=== PATIENT | female | born 1945 | race Caucasian/White ===

== ENCOUNTER 2020-05-14 20:18 | Emergency (ER) | payer MEDICARE, MEDICAID ==
[2020-05-14] MEDS ORDERED: Sodium Chloride 0.9% 10 ML Syringe FLUSH PRN (20:38)
--- NOTE | 2020-05-14 21:07 | EDM.PDOC ---
ED HPI GENERAL MEDICAL PROBLEM - General Chief Complaint: General Stated Complaint: FALL Time Seen by Provider: 05/14/20 20:18 Source of Information: Reports: Patient History Limitations: Reports: No Limitations - History of Present Illness INITIAL COMMENTS - FREE TEXT/NARRATIVE: Patient comes into the emergency department with complaints of increased confusion and weakness. Daughter is with the patient states that they noticed this morning approximately 8:00 AM that the patient was more tired and fatigued and slowly throughout the day she is progressively gotten worse. She even needed to take a nap after they went shopping this afternoon which is not a normal finding. She did take her blood sugar at home for she is a diabetic but the reading 1 hour ago was 170s. States that her father has noticed that her mother has become more intermittently confused over the course the last month. But noticed increased confusion since this am. She denies any behavioral change s but states that her father has noticed confusion. They have not worked this up with primary care yet but do expect follow-up soon. Patient's daughter states that she had difficulty getting out of the car to the weakness today and needed a wheelchair to get into the ER. She does not normally utilize any assistive devices on a regular basis. She does not recall noticing any asymmetry with regards to strength,weakness, or mobility. Not noticed any nausea or vomiting. Patient declines any chest pain, shortness of breath, nausea, dizziness, GI upset, urinary concerns or abnormalities, or peripheral edema. Patient and family both state they have not had any other illnesses or concerns or COVID 19 symptoms. Last known well 0800 05/14/2020: 12+ hours No surgeries, hospitalizations within 30 days, no major bleeding within 3 months, no anticoagulants Onset: Today Location: Reports: Head Improves with: Reports: None Worsens with: Reports: None Associated Symptoms: Reports: No Other Symptoms - Related Data Allergies Allergy/AdvReac Type Severity Reaction Status Date / Time sulfasalazine Allergy Itching Verified 03/02/16 08:43 Home Meds: Home Meds Acetaminophen [Tylenol] 325 mg PO ASDIRECTED PRN 02/02/16 [History] Aspirin 162.5 mg PO DAILY 02/02/16 [History] Calcium Carbonate [Calcium] 600 mg PO DAILY 02/02/16 [History] Folic Acid 1 mg PO DAILY 02/02/16 [History] Leflunomide 10 mg PO DAILY 02/02/16 [History] Lisinopril 5 mg PO DAILY 02/02/16 [History] Methotrexate Sodium/PF [Methotrexate 25 mg/ml Vial] 25 mg SQ WEEKLY 02/02/16 [History] Naproxen Sodium 220 mg PO ASDIRECTED PRN 02/02/16 [History] Ofloxacin [Ocuflox 0.3% Ophth Soln] 1 drop .ROUTE ASDIRECTED 02/02/16 [History] Simvastatin [Zocor] 5 mg PO DAILY 02/02/16 [History] Simvastatin [Zocor] 10 mg PO DAILY 02/02/16 [History] glipiZIDE [Glipizide Xl] 5 mg PO DAILY 02/02/16 [History] predniSONE [Prednisone] 2 mg PO DAILY 02/02/16 [History] Non-Formulary Medication [NF Drug] 0 each .XX .XX 02/03/16 [History] Sulfamethoxazole/Trimethoprim [Bactrim Ds Tablet] 1 each PO BID #14 tablet 05/14/20 [Rx] Past Medical History Cardiovascular History: Reports: High Cholesterol, Hypertension Musculoskeletal History: Reports: RA Endocrine/Metabolic History: Reports: Diabetes, Type II ED ROS GENERAL - Review of Systems Review Of Systems: Comprehensive ROS is negative, except as noted in HPI. Constitutional: Reports: No Symptoms HEENT: Reports: No Symptoms Respiratory: Reports: No Symptoms Cardiovascular: Reports: No Symptoms Endocrine: Reports: No Symptoms GI/Abdominal: Reports: No Symptoms : Reports: No Symptoms Musculoskeletal: Reports: No Symptoms Skin: Reports: No Symptoms Neurological: Reports: Confusion, Trouble Speaking, Difficulty Walking, Weakness Psychiatric: Reports: No Symptoms Hematologic/Lymphatic: Reports: No Symptoms Immunologic: Reports: No Symptoms ED EXAM, GENERAL - Physical Exam Exam: See Below Exam Limited By: No Limitations General Appearance: Alert, WD/WN, No Apparent Distress Head: Atraumatic, Normocephalic Neck: Normal Inspection, Supple, Non-Tender, Full Range of Motion Respiratory/Chest: No Respiratory Distress, Lungs Clear, Normal Breath Sounds, No Accessory Muscle Use, Chest Non-Tender Cardiovascular: Normal Peripheral Pulses, Regular Rate, Rhythm, No Edema, No JVD GI/Abdominal: Normal Bowel Sounds, Soft, Non-Tender, No Distention Back Exam: Normal Inspection, Full Range of Motion Extremities: Normal Inspection, Normal Range of Motion, Non-Tender, No Pedal Edema, Normal Capillary Refill Neurological: Confused, Disoriented, Slow to Respond Psychiatric: Normal Affect, Flat Affect Skin Exam: Warm, Dry, Intact, Normal Color Course - Orders/Labs/Meds Orders: Active Orders 24 hr Category Date Time Status Chest 1V Frontal [CR] Stat Exams 05/14/20 21:23 Taken Head wo Cont [CT] Stat Exams 05/14/20 20:38 Taken CULTURE URINE [RM] Stat Lab 05/14/20 22:05 Received Sodium Chloride 0.9% [Normal Saline] 1,000 ml Med 05/14/20 21:13 Active IV ONETIME Sodium Chloride 0.9% [Saline Flush] Med 05/14/20 20:38 Active 10 ml FLUSH ASDIRECTED PRN Peripheral IV Insertion Adult [OM.PC] Stat Oth 05/14/20 20:37 Ordered Medication Orders Sodium Chloride (Normal Saline) 1,000 mls @ 300 mls/hr IV ONETIME ONE Stop: 05/15/20 00:32 Sodium Chloride (Saline Flush) 10 ml FLUSH ASDIRECTED PRN PRN Reason: Keep Vein Open Labs: Laboratory Tests 05/14/20 05/14/20 05/14/20 Range/Units 20:29 20:35 20:35 WBC 10.6 H (4.0-10.0) x10^3/uL RBC 4.37 (4.00-5.50) x10^6/uL Hgb 12.6 (12.0-16.0) g/dL Hct 37.9 (33.0-47.0) % MCV 86.7 (78.0-93.0) fL MCH 28.8 (26.0-32.0) pg MCHC 33.2 (32.0-36.0) g/dL RDW Coeff of Diana 15.8 H (10.0-15.0) % Plt Count 174 (130-400) x10^3/uL Neut % (Auto) 89.5 H (50.0-80.0) % Lymph % (Auto) 6.1 L (25.0-50.0) % [place] % (Auto) 2.5 (2.0-11.0) % Eos % (Auto) 1.4 (0.0-4.0) % Baso % (Auto) 0.5 (0.2-1.2) % PT (9.5-12.3) SEC INR (2.0-3.5) Sodium 133 L (136-145) mmol/L Potassium 3.6 (3.5-5.1) mmol/L Chloride 99 (98-107) mmol/L Carbon Dioxide 26 (21-32) mmol/L Anion Gap 11.6 (10-20) mmol/L BUN 17 (7-18) mg/dL Creatinine 0.5 L (0.55-1.02) mg/dL Est Cr Clr Drug Dosing TNP Estimated GFR (MDRD) > 60 Glucose 160 H (74-106) mg/dL POC Glucose 151 H (74-106) mg/dL Calcium 8.8 (8.5-10.1) mg/dL Corrected Calcium 9.60 (8.5-10.1) mg/dL Total Bilirubin 1.2 H (0.2-1.0) mg/dL AST 18 (15-37) U/L ALT 26 (14-59) U/L Alkaline Phosphatase 133 H (46-116) U/L Creatine Kinase 34 (26-192) U/L Troponin I < 0.017 (<=0.056) ng/mL NT-Pro-B Natriuret Pep 23 (<=450) pg/mL Total Protein 6.2 L (6.4-8.2) g/dL Albumin 3.0 L (3.4-5.0) g/dL Globulin 3.2 Albumin/Globulin Ratio 0.94 Urine Color (YELLOW) Urine Appearance (CLEAR) Urine pH (5.0-8.0) Ur Specific [place] Urine Protein (NEGATIVE) mg/dL Urine Glucose (UA) (NEGATIVE) mg/dL Urine Ketones (NEGATIVE) mg/dL Urine Occult Blood (NEGATIVE) Urine Nitrite (NEGATIVE) Urine Bilirubin (NEGATIVE) Urine Urobilinogen (0.2) EU/dL Ur Leukocyte Esterase (NEGATIVE) Urine RBC (NOT SEEN) /HPF Urine WBC (NOT SEEN) /HPF Ur Squamous Epith Cells (NEGATIVE) /HPF Urine Bacteria (NEGATIVE) /HPF Urine Mucus (NEGATIVE) /LPF 05/14/20 05/14/20 Range/Units 21:02 22:05 WBC (4.0-10.0) x10^3/uL RBC (4.00-5.50) x10^6/uL Hgb (12.0-16.0) g/dL Hct (33.0-47.0) % MCV (78.0-93.0) fL MCH (26.0-32.0) pg MCHC (32.0-36.0) g/dL RDW Coeff of Diana (10.0-15.0) % Plt Count (130-400) x10^3/uL Neut % (Auto) (50.0-80.0) % Lymph % (Auto) (25.0-50.0) % [place] % (Auto) (2.0-11.0) % Eos % (Auto) (0.0-4.0) % Baso % (Auto) (0.2-1.2) % PT 10.4 (9.5-12.3) SEC INR 1.0 L (2.0-3.5) Sodium (136-145) mmol/L Potassium (3.5-5.1) mmol/L Chloride (98-107) mmol/L Carbon Dioxide (21-32) mmol/L Anion Gap (10-20) mmol/L BUN (7-18) mg/dL Creatinine (0.55-1.02) mg/dL Est Cr Clr Drug Dosing Estimated GFR (MDRD) Glucose (74-106) mg/dL POC Glucose (74-106) mg/dL Calcium (8.5-10.1) mg/dL Corrected Calcium (8.5-10.1) mg/dL Total Bilirubin (0.2-1.0) mg/dL AST (15-37) U/L ALT (14-59) U/L Alkaline Phosphatase (46-116) U/L Creatine Kinase (26-192) U/L Troponin I (<=0.056) ng/mL NT-Pro-B Natriuret Pep (<=450) pg/mL Total Protein (6.4-8.2) g/dL Albumin (3.4-5.0) g/dL Globulin Albumin/Globulin Ratio Urine Color Yellow (YELLOW) Urine Appearance Cloudy H (CLEAR) Urine pH 7.0 (5.0-8.0) Ur Specific [place] 1.015 Urine Protein Negative (NEGATIVE) mg/dL Urine Glucose (UA) 500 H (NEGATIVE) mg/dL Urine Ketones 40 H (NEGATIVE) mg/dL Urine Occult Blood Trace-intact H (NEGATIVE) Urine Nitrite Positive H (NEGATIVE) Urine Bilirubin Negative (NEGATIVE) Urine Urobilinogen 1.0 (0.2) EU/dL Ur Leukocyte Esterase Trace H (NEGATIVE) Urine RBC 0-5 (NOT SEEN) /HPF Urine WBC 10-20 H (NOT SEEN) /HPF Ur Squamous Epith Cells Moderate H (NEGATIVE) /HPF Urine Bacteria Many H (NEGATIVE) /HPF Urine Mucus Rare H (NEGATIVE) /LPF Meds: Medications Generic Name Dose Route Start Last Admin Trade Name Freq PRN Reason Stop Dose Admin Sodium Chloride 1,000 mls @ 300 mls/hr 05/14/20 21:13 Normal Saline IV 05/15/20 00:32 ONETIME ONE Sodium Chloride 10 ml 05/14/20 20:38 Saline Flush FLUSH ASDIRECTED PRN Keep Vein Open Discontinued Medications Generic Name Dose Route Start Last Admin Trade Name Freq PRN Reason Stop Dose Admin Ceftriaxone Sodium 1 gm 05/14/20 22:26 Rocephin IVPUSH 05/14/20 22:27 ONETIME ONE Departure - Departure Time of Disposition: 22:50 Disposition: Home, Self-Care 01 Condition: Good Clinical Impression: UTI, Urinary tract infectious disease - Discharge Information *PRESCRIPTION DRUG MONITORING PROGRAM REVIEWED*: Not Applicable *COPY OF PRESCRIPTION DRUG MONITORING REPORT IN PATIENT ATTILA: Not Applicable Prescriptions: Sulfamethoxazole/Trimethoprim [Bactrim Ds Tablet] 1 each PO BID #14 tablet Instructions: Urinary Tract Infection, Adult, Ceftriaxone injection, Probiotics, Sulfamethoxazole; Trimethoprim, SMX-[id number] tablets Referrals: Dianelys Waller PA-C [Primary Care Provider] - Forms: ED Department Discharge Additional Instructions: 1. rest 2. increase your water intake 3. Take all antibiotics as prescribed even if feeling better 4. Take a probiotic while on antibiotics to help promote healthy GI motility 5. Activity and diet as tolerated 6. Can use Ibuprofen and tylenol for any fever or discomfort 7. Follow up with your PCP or return if symptoms progress or worsen 8. Education provided to you regarding your illness, probiotics, antibiotic prescribed 9. Call with any questions or concerns - My Orders Last 24 Hours: My Active Orders 05/14/20 20:37 Peripheral IV Insertion Adult [OM.PC] Stat 05/14/20 20:38 Head wo Cont [CT] Stat Sodium Chloride 0.9% [Saline Flush] 10 ml FLUSH ASDIRECTED PRN 05/14/20 21:13 Sodium Chloride 0.9% [Normal Saline] 1,000 ml IV ONETIME 05/14/20 21:23 Chest 1V Frontal [CR] Stat 05/14/20 22:05 CULTURE URINE [RM] Stat - Assessment/Plan Last 24 Hours: My Active Orders 05/14/20 20:37 Peripheral IV Insertion Adult [OM.PC] Stat 05/14/20 20:38 Head wo Cont [CT] Stat Sodium Chloride 0.9% [Saline Flush] 10 ml FLUSH ASDIRECTED PRN 05/14/20 21:13 Sodium Chloride 0.9% [Normal Saline] 1,000 ml IV ONETIME 05/14/20 21:23 Chest 1V Frontal [CR] Stat 05/14/20 22:05 CULTURE URINE [RM] Stat Assessment:: 1. mental state changes 2. UTI Plan: 1. Labs completed in the ER. Results reviewed with the patient 2. CT scan completed in the ER. Results reviewed with the patient 3. IV initiated in the emergency department 4. IV fluids provided 5. UA/UC ordered and obtained 6. 1 gm Rocephin IV given 7. Chest xray completed in ER- results reviewed with the patient and family 8. Patient will be transferred to a higher level of care needing further medical and/or surgical interventions 9. Patient and nursing staff was updated regarding the plan of care 10. Patient and family are agreeable to the above plan of care 11. All questions and concerns were addressed with the patient and family prior to discharge
[2020-05-14 21:13] LABS: CHLORIDE,CL 99 mmol/L (98-107); SODIUM,NA 133 mmol/L (136-145)
[2020-05-14] MEDS ORDERED: Sodium Chloride 0.9% 1,000 ML IV ONE (21:13)
[2020-05-14 21:15] LABS: ANION GAP 11.6 mmol/L (10-20)
[2020-05-14] MEDS ORDERED: cefTRIAXone 1 GM Vial IVPUSH ONE (22:26)
--- NOTE | 2020-05-15 08:08 | CR ---
[id number] RAD/RAD Chest Portable EXAM: PORTABLE CHEST RADIOGRAPH. INDICATION: DECREASED BREATH SOUNDS COMPARISON: No previous similar exam is available for comparison. FINDINGS: The lungs are clear. The cardiomediastinal contour is mildly prominent. The regional bones and soft tissues are unremarkable. There is no pneumothorax. IMPRESSION: NO ACUTE PROCESS. Sky Suarez MD 05/15/20 0807 Thank you for allowing us to participate in the care of your patient.
--- NOTE | 2020-05-15 08:09 | CT ---
[id number] CT/CT Head WO IV EXAM: CT Head WO IV CLINICAL DATA: NEUROLOGIC DEFICIT COMPARISON: CORRELATION IS MADE WITH JANUARY 02, 2020 FINDINGS: There is no mass or mass effect. There is no hemorrhage or hydrocephalus. There are no extra-axial fluid collections. There are no sites of abnormal attenuation. IMPRESSION: NO PLAIN CT EVIDENCE OF ACUTE INTRACRANIAL PROCESS. Sky Suarez MD 05/15/20 0808 Thank you for allowing us to participate in the care of your patient.
== END 2020-05-14 22:53 | disposition home or self-care (01) ==
LOC: VM.ED 20:18
DX: N39.0 Urinary tract infection, site not specified (principal); I10 Essential (primary) hypertension; E11.9 Type 2 diabetes mellitus without complications; E78.00 Pure hypercholesterolemia, unspecified; Z88.2 Allergy status to sulfonamides; Z79.82 Long term (current) use of aspirin; Z79.899 Other long term (current) drug therapy
CPT/HCPCS: 36415; 70450; 71045; 80053; 81001; 82550; 82962; 83880; 84484; 85025; 85610; 87086; 87088; 87186; 93005; 96361; 96374; 99285; J0696; 99284-GF

== ENCOUNTER 2022-03-13 10:30 | Emergency (ER) | payer MEDICARE, MEDICAID ==
[2022-03-13 11:33] VITALS: BP 115/52; PULSE 89
== END 2022-03-13 11:05 | disposition home or self-care (01) ==
LOC: VM.ED 10:30
DX: M25.511 Pain in right shoulder (principal); M25.512 Pain in left shoulder; M54.2 Cervicalgia; E78.00 Pure hypercholesterolemia, unspecified; I10 Essential (primary) hypertension; E11.9 Type 2 diabetes mellitus without complications; Z88.8 Allergy status to other drugs, medicaments and biological substances; Z79.82 Long term (current) use of aspirin; Z79.899 Other long term (current) drug therapy
CPT/HCPCS: 99283; 99284

== ENCOUNTER 2023-11-27 21:41 | Emergency (ER) | payer MEDICARE, MEDICAID ==
[2023-11-27 22:11] VITALS: PULSE 108
[2023-11-27 22:41] VITALS: BP 130/28
== END 2023-11-27 22:27 | disposition home or self-care (01) ==
LOC: VM.ED 21:41
DX: M06.9 Rheumatoid arthritis, unspecified (principal); I10 Essential (primary) hypertension; E11.9 Type 2 diabetes mellitus without complications; E78.00 Pure hypercholesterolemia, unspecified; Z79.82 Long term (current) use of aspirin; Z79.899 Other long term (current) drug therapy; Z79.84 Long term (current) use of oral hypoglycemic drugs; Z88.2 Allergy status to sulfonamides
CPT/HCPCS: 93005; 93010; 99283; 99284

== ENCOUNTER 2025-05-21 09:46 | Emergency (ER) | payer MEDICAID, MEDICARE ==
[2025-05-21 10:06] VITALS: BP 132/60; PULSE 84
[2025-05-21] MEDS: Ketorolac 30 MG/ML SDV IM ONE (10:21)
== END 2025-05-21 10:35 ==
LOC: VM.ED 09:46
DX: M54.9 Dorsalgia, unspecified (principal); I10 Essential (primary) hypertension; E11.9 Type 2 diabetes mellitus without complications; E78.00 Pure hypercholesterolemia, unspecified; Z88.0 Allergy status to penicillin; Z79.899 Other long term (current) drug therapy; Z79.82 Long term (current) use of aspirin
CPT/HCPCS: 96372; 99282; 99283; J1885

== ENCOUNTER 2025-07-17 17:23 | Emergency (ER) | payer MEDICARE ==
[2025-07-17 17:41] LABS: BASOPHILS ABSOLUTE AUTO 0.0 x10^3/uL (0.0-0.2); BASOPHILS PERCENT AUTO 0.1 % (0.2-1.2); EOSINOPHILS ABSOLUTE AUTO 0.1 x10^3/uL (0.0-0.5); EOSINOPHILS PERCENT AUTO 1.0 % (0.0-4.0); IMMATURE GRAN ABSOLUTE AUTO 0.01 x10^3/uL (0.00-0.07); IMMATURE GRAN PERCENT AUTO 0.10 % (0.00-0.43); LYMPHOCYTES ABSOLUTE AUTO 1.8 x10^3/uL (1.0-4.8); LYMPHOCYTES PERCENT AUTO 18.0 % (25.0-50.0); MONOCYTES ABSOLUTE AUTO 0.5 x10^3/uL (0.0-0.8); MONOCYTES PERCENT AUTO 5.3 % (2.0-11.0); NEUTROPHILS ABSOLUTE AUTO 7.4 x10^3/uL (1.8-7.7); NEUTROPHILS PERCENT AUTO 75.5 % (50.0-80.0); PLATELET COUNT,PLT 291 x10^3/uL (130-400); RED BLOOD CELL COUNT 4.32 x10^6/uL (4.00-5.50); WHITE BLOOD CELL COUNT,WBC 9.9 x10^3/uL (4.0-10.0)
[2025-07-17 18:01] LABS: A/G RATIO 0.89; ALANINE AMINOTRANSFERASE,ALT 19 U/L (14-59); ASPARTATE AMNIOTRANSFERASE,AST 11 U/L (15-37); BILIRUBIN TOTAL 0.6 mg/dL (0.2-1.0); BLOOD UREA NITROGEN,BUN 16 mg/dL (7-18); CARBON DIOXIDE,CO2 27 mmol/L (21-32); CHLORIDE,CL 99 mmol/L (98-107); CREATININE 0.8 mg/dL (0.55-1.02); GLUCOSE RANDOM 385 mg/dL (70-99); POTASSIUM,K 4.0 mmol/L (3.5-5.1); PROTEIN TOTAL,TP 7.0 g/dL (6.4-8.2); SODIUM,NA 134 mmol/L (136-145)
[2025-07-17 18:08] LABS: ESTIMATED GFR 74 mL/min (>=60)
[2025-07-17 19:19] VITALS: BP 131/59; PULSE 77
== END 2025-07-17 18:33 | disposition home or self-care (01) ==
LOC: VM.ED 17:23
DX: E11.65 Type 2 diabetes mellitus with hyperglycemia (principal); I10 Essential (primary) hypertension; Z88.8 Allergy status to other drugs, medicaments and biological substances; Z79.84 Long term (current) use of oral hypoglycemic drugs; Z79.899 Other long term (current) drug therapy
CPT/HCPCS: 80053; 82947; 85025; 96360; 99284; J7030